=== PATIENT | female | born 1995 | race Caucasian/White ===

== ENCOUNTER → 2022-09-23 | Outpatient (CLI) | payer BC | LOC: LAB SHORT 11:44 → LAB 11:44 | PROVIDERS: Obstetrics & Gynecology | DX: Z01.419 Encounter for gynecological examination (general) (routine) without abnormal findings (principal) | CPT/HCPCS: G0145 ==

== ENCOUNTER → 2023-05-01 | Outpatient (CLI) | payer BC | END | disposition home or self-care (01) | LOC: LAB SHORT 18:00 | DX: O36.80X9 Pregnancy with inconclusive fetal viability, other fetus (principal) | CPT/HCPCS: 84702 ==

== ENCOUNTER 2024-07-27 06:33 | Day surgery (SDC) | payer OTHER ==
[~2024-07-27] VITALS: Ht 157.5 cm; Wt 67.4 kg
[2024-07-27] VITALS (9 sets, daily range): BP systolic 89–116; BP diastolic 47–76
[~2024-07-27 06:33] MED LIST: CeFAZolin Sodium 2,000 MG in NS 100 ML IV SCH; Lactated Ringer's 1,000 ML IV SCH
[2024-07-27] MEDS ORDERED: Dexamethasone Sod Phos 10 MG/ML 1ML VIAL ONE (06:38)
[2024-07-27] MEDS ORDERED: Lidocaine HCl 2% 20 ML MDV ONE (06:38)
[2024-07-27] MEDS ORDERED: Metoclopramide HCl 5MG / ML 2ML Vial ONE (06:38)
[2024-07-27] MEDS ORDERED: Ondansetron HCl 2 MG / ML 2ML Vial ONE (06:38)
[2024-07-27] MEDS ORDERED: Ketorolac Tromethamine 30mg Vial ONE (06:39)
[2024-07-27] MEDS ORDERED: propofoL 20 ML IV ONE (06:39)
[2024-07-27] MEDS ORDERED: Dexmedetomidine HCL 200 MCG / 2 ML ONE (06:42)
[2024-07-27] MEDS ORDERED: propofoL 50 ML IV ONE (06:42)
[2024-07-27] MEDS ORDERED: IBUP600 PO (06:45)
[2024-07-27] MEDS ORDERED: Bupivacaine 0.5% HCl 5 MG/ML 30MLVIAL ONE (06:54)
[2024-07-27] MEDS ORDERED: Methylergonovine Maleate 0.2MG / ML 1ML Amp ONE (06:55)
[2024-07-27] MEDS ORDERED: Lidocaine HCl 1% 5 ML SYR INJ ONE (07:00)
[2024-07-27] MEDS ORDERED: ePHEDrine Sulfate 50 MG/ML 1ML Injection IV PRN (07:00)
[2024-07-27] MEDS ORDERED: DiphenhydrAMINE HCl 50 MG/ML 1ML Vial ONE (07:00)
[2024-07-27] MEDS ORDERED: Acetaminophen 500 MG Tab PO ONE (07:00)
[2024-07-27] MEDS ORDERED: CeFAZolin Sodium 2,000 MG VIAL ONE (07:02)
[2024-07-27] MEDS ORDERED: HYDROmorphone HCl/Pf 1MG SYR IV PRN ×2 (07:05)
[2024-07-27] MEDS ORDERED: Scopolamine Hydrobromide Patch TOP SCH (07:05)
[2024-07-27] MEDS ORDERED: FentaNYL Citrate 50 MCG/ML 2 ML Injection IV PRN ×2 (07:05→07:10)
[2024-07-27] MEDS ORDERED: Ondansetron HCl 2 MG / ML 2ML Vial IV PRN (07:05)
[2024-07-27] MEDS ORDERED: Albuterol 2.5 MG/3 ML VIAL INH PRN (07:05)
[2024-07-27] MEDS ORDERED: Droperidol 5 mg/2 ml Vial IV PRN (07:05)
[2024-07-27] MEDS ORDERED: FentaNYL Citrate 50 MCG/ML 2 ML Injection ONE (07:10)
[2024-07-27] MEDS ORDERED: OxyCODONE 5 mg/Acetamin 325 mg TABLET PO PRN (08:10)
--- NOTE | 2024-07-27 09:08 | NUR ---
MAZIN PAD DID HAVE SOME MODERATE AMOUNT OF LIGHT RED DRAINAGE NOTED. UP TO BATHROOM. PER PATIENT "PASSED SOME TISSUE". EDUCATED PATIENT THAT IS NORMAL BUT TO MONITOR IF INCREASE AMOUNT CONTINUES WITH INCREASE BLEEDING.
--- NOTE | 2024-07-27 09:18 | NUR ---
Discharge instructions reviewed with patient. Patient verbalizes understanding. Copy given to patient to take home. Patient States Post-Procedure ride home has been arranged with Discharged via wheelchair to private car for ride home.
== END 2024-07-27 09:10 | disposition home or self-care (01) ==
LOC: ORSCMMR 06:33 → ORD 07:30 → ORSCMMR 09:10
PROVIDERS: Obstetrics & Gynecology
PROC: 10D17ZZ Extraction of Products of Conception, Retained, Via Natural or Artificial Opening (ICD-10-PCS; principal; 2024-07-27 07:30)
DX: O03.9 Complete or unspecified spontaneous abortion without complication (principal)
CPT/HCPCS: 76998; 88305; A9270; J0690; J1100; J1200; J1885; J2210; J2405; J2704; J2765; J3010; J7120